=== PATIENT | female | born 1940 | race African-American/Black ===

== ENCOUNTER 2021-12-05 11:27 | Inpatient (IN) | payer OTHER ==
[~2021-12-05] VITALS: Ht 170.2 cm; Wt 63.5 kg
[2021-12-05] VITALS (25 sets, daily range): BP systolic 85–142; BP diastolic 42–84
[2021-12-05 11:59] LABS: HEMATOCRIT. 36.1 % (36.0-48.0); MEAN CORPUSCULAR VOLUME 81.5 fL (81.0-99.0); MEAN PLATELET VOLUME 7.9 fl (7.4-10.4); PLATELET 205 x1000/uL (130-400); RED BLOOD CELL COUNT 4.43 mill/uL (4.2-5.4); RED CELL DISTRIBUTION WIDTH 15.7 % (11.6-14.6)
[2021-12-05 12:08] LABS: CHLORIDE 56 mEq/L (98-107); INR 1.1; PROTHROMBIN TIME 11.6 sec (9.6-11.0)
[2021-12-05 12:20] LABS: BG BASE EXCESS 16.8 mmol/L (-2.0-2.0); BG CARBOXYHEMOGLOBIN 0.4 % (0.5-1.5); BG DEOXYHEMOGLOBIN 16.4 % (0.0-5.0); BG FRACTION INSPIRED OXYGEN 21; BG HCO3 ACT 40.9 mmol/L (22.0-26.0); BG METHEMOGLOBIN 0.1 % (0.0-1.5); BG OXYGEN SATURATION 83.5 % (92.0-98.5); BG OXYHEMOGLOBIN 83.1 % (94.0-97.0); BG PH 7.567 (7.350-7.450); BG PO2 43.1 mmHg (75.0-100.0); BG SAMPLE SITE LEFT RADIAL; BG TOTAL HEMOGLOBIN 13.2 g/dL (12.0-18.0); BG VENT MODE ROOM AIR
[2021-12-05 12:27] LABS: PLATELET ESTIMATE NORMAL
[2021-12-05] MEDS ORDERED: POTASSIUM CHLORIDE 20MEQ TABLET SR PO ONE (12:45)
[2021-12-05] MEDS ORDERED: KCL 20MEQ/100ML PREMIX 100 ML IV ONE (12:45)
[2021-12-05] MEDS ORDERED: SODIUM CHLORIDE 3% 500 ML IV ONE (14:30)
[2021-12-05] MEDS ORDERED: POTASSIUM CHLORIDE INJ 40 MEQ in DEXT 5% WATER 250 ML IV ONE ×2 (14:45→17:00)
[2021-12-05] MEDS ORDERED: ACETAMINOPHEN 325MG TABLET PO PRN (14:45)
[2021-12-05] MEDS ORDERED: ONDANSETRON HCL 4MG/2ML INJ IV PRN (14:45)
[2021-12-05] MEDS ORDERED: KCL 20MEQ/100ML X 2 FOR TOTAL KCL 40MEQ/200ML IV SCH (15:00)
[2021-12-05] MEDS: SPIRONOLACTONE 25MG TABLET PO SCH (15:43)
[2021-12-05 16:22] LABS: PHOSPHORUS 2.8 mg/dL (2.5-4.9)
[2021-12-05] MEDS: KCL 20MEQ/100ML X 3 FOR TOTAL KCL 60MEQ/300ML IV SCH ×3 (17:30→21:30)
[2021-12-05] MEDS ORDERED: POTASSIUM CHLORIDE 20MEQ TABLET SR PO NR (17:30)
[2021-12-05 20:11] LABS: CHLORIDE 67 mEq/L (98-107)
[2021-12-05] MEDS ORDERED: DEXT 5%/0.9% NACL 1,000 ML IV PRN (21:00)
[2021-12-05] MEDS ORDERED: OPSUMIT PO SCH (23:45)
[2021-12-05] MEDS ORDERED: IPRATROPIUM/ALBUTEROL 0.5-3(2.5)MG/3ML NEB HHN PRN (23:45)
[2021-12-06] VITALS (66 sets, daily range): BP systolic 98–144; BP diastolic 45–116
[2021-12-06] MEDS ORDERED: IPRATROPIUM/ALBUTEROL 0.5-3(2.5)MG/3ML NEB HHN SCH
[2021-12-06 01:04] LABS: CHLORIDE 71 mEq/L (98-107)
[2021-12-06] MEDS ORDERED: DEXTROSE 5% WATER 1,000 ML IV SCH (04:15)
[2021-12-06 05:57] LABS: CHLORIDE 73 mEq/L (98-107)
[2021-12-06] MEDS: SILDENAFIL CITRATE 20MG TABLET PO SCH ×2 (06:00→14:11)
[2021-12-06] MEDS ORDERED: KCL 20MEQ/100ML PREMIX 100 ML IV SCH (07:00)
[2021-12-06] MEDS: SPIRONOLACTONE 25MG TABLET PO SCH (08:50)
[2021-12-06 09:57] LABS: BG BASE EXCESS 17.1 mmol/L (-2.0-2.0); BG CARBOXYHEMOGLOBIN 0.7 % (0.5-1.5); BG DEOXYHEMOGLOBIN 9.6 % (0.0-5.0); BG FRACTION INSPIRED OXYGEN 40; BG HCO3 ACT 42.7 mmol/L (22.0-26.0); BG METHEMOGLOBIN 0.2 % (0.0-1.5); BG OXYGEN SATURATION 90.3 % (92.0-98.5); BG OXYHEMOGLOBIN 89.5 % (94.0-97.0); BG PCO2 53.9 mmHg (35.0-45.0); BG PH 7.517 (7.350-7.450); BG PO2 55.6 mmHg (75.0-100.0); BG SAMPLE SITE RIGHT RADIAL; BG TOTAL HEMOGLOBIN 13.7 g/dL (12.0-18.0); BG VENT MODE NASAL CANNULA
[2021-12-06 13:23] LABS: CHLORIDE 75 mEq/L (98-107)
[2021-12-06] MEDS ORDERED: POTASSIUM CHLORIDE 20MEQ TABLET SR PO NR (14:00)
== END 2021-12-06 18:35 | disposition short-term general hospital (02) | DRG 189 ==
LOC: ER 11:27 → MICUNO 13:53 → EDBEDREQSVC 13:54 → EDBEDREQTM 13:54 → EDBEDREQ 13:54 → EDBEDREQTM 13:56 → ENRESERV 17:12
PROVIDERS: ADMIT Internal Medicine; ATTEND Internal Medicine
DX: J96.21 Acute and chronic respiratory failure with hypoxia (principal); E43 Unspecified severe protein-calorie malnutrition; M87.9 Osteonecrosis, unspecified; G93.40 Encephalopathy, unspecified; E87.3 Alkalosis; E87.1 Hypo-osmolality and hyponatremia; I27.20 Pulmonary hypertension, unspecified; J44.9 Chronic obstructive pulmonary disease, unspecified; E87.6 Hypokalemia; E87.8 Other disorders of electrolyte and fluid balance, not elsewhere classified; I44.0 Atrioventricular block, first degree; I45.10 Unspecified right bundle-branch block; E78.5 Hyperlipidemia, unspecified; K59.00 Constipation, unspecified; I50.9 Heart failure, unspecified; I11.0 Hypertensive heart disease with heart failure; E87.5 Hyperkalemia; Z20.822 Contact with and (suspected) exposure to COVID-19; N81.89 Other female genital prolapse; Z86.73 Personal history of transient ischemic attack (TIA), and cerebral infarction without residual deficits; Z82.49 Family history of ischemic heart disease and other diseases of the circulatory system; Z88.8 Allergy status to other drugs, medicaments and biological substances; Z79.899 Other long term (current) drug therapy; Z68.21 Body mass index [BMI] 21.0-21.9, adult; Z99.81 Dependence on supplemental oxygen; Z91.81 History of falling
CPT/HCPCS: 36415; 36600; 71045; 72192; 80048; 80053; 82375; 82533; 82805; 83605; 83735; 83880; 83930; 84100; 84132; 84145; 84443; 84484; 85025; 87426; 93005; 93306; 99291; J3480; J7042; J7070